=== PATIENT | female | born 1935 | race Caucasian/White ===

== ENCOUNTER 2016-06-23 11:47 | Day surgery (SDC) | payer OTHER ==
[~2016-06-23 11:47] MED LIST: ALAV10TA PO; ALPR.25 PO; ASPI325T24 PO; B-1100TA2 PO; BIOT5000 PO; CENTTAB16 PO; CIPR500T4 PO; CO Q100C9 PO; CRANCAP11 PO; CYAN100017 PO; CYMB30CA PO; D32000CA PO; GABA100C4 PO; GNP3TAB PO; HYAL20CA2 PO; LEVO75TA3 PO; LOSA50TA PO; MAGN400 PO; NITR.4 SL; OMEP20TA PO; POTA550T4 PO; PROB1TAB PO; ULTR50TA PO; VITA100017 PO; VITA100T55 PO; [UNRECOGNIZED DRUG - CODE] PO
[2016-06-23] MEDS ORDERED: VANCOMYCIN 1000 MG/NS 250 ML IV SCH ×2 (12:15)
[2016-06-23] MEDS ORDERED: NS 1000 ML IV SCH (12:15)
[2016-06-23] MEDS ORDERED: MIDAZOLAM HCL 5 MG/5 ML VIAL ONE (12:30)
[2016-06-23] MEDS ORDERED: LEVO75TA3 PO (12:41)
[2016-06-23] MEDS ORDERED: ASPI325T PO (12:41)
[2016-06-23] MEDS ORDERED: ATOR10TA15 PO (12:41)
[2016-06-23] MEDS ORDERED: MELAPOW2 PO (12:41)
[2016-06-23] MEDS ORDERED: ALPR0.25 PO (12:41)
[2016-06-23] MEDS ORDERED: VITA25TA PO (12:41)
[2016-06-23] MEDS ORDERED: TUMS500C CHEW (12:41)
[2016-06-23] MEDS ORDERED: GABA300C5 PO (12:41)
[2016-06-23] MEDS ORDERED: CYAN1TAB24 PO (12:41)
[2016-06-23] MEDS ORDERED: CENTTAB PO (12:41)
[2016-06-23] MEDS ORDERED: OMEP20CA2 (12:41)
[2016-06-23] MEDS ORDERED: TRAM50TA PO (12:41)
[2016-06-23] MEDS ORDERED: CRAN125T PO (12:41)
[2016-06-23] MEDS ORDERED: VITA100C6 PO (12:41)
[2016-06-23] MEDS ORDERED: LOSA50TA PO (12:41)
[2016-06-23] MEDS ORDERED: BACL10TA PO (12:41)
[2016-06-23] MEDS ORDERED: CHOL1CHW5 CHEW (12:41)
[2016-06-23] MEDS ORDERED: METO50TA11 PO (12:41)
[2016-06-23] MEDS ORDERED: COQ-30CA2 PO (12:41)
[2016-06-23] MEDS ORDERED: LORA1POW7 PO (12:41)
[2016-06-23] MEDS ORDERED: POTA2.5T PO (12:41)
[2016-06-23] MEDS ORDERED: MUPIROCIN 2% OINT 1 APPLIC/GM SYR NASAL SCH (13:00)
[2016-06-23] MEDS ORDERED: CHLORHEXIDINE GLUCONATE 2 % 1 PACK (2 CLOTHS) TOP SCH (13:00)
[2016-06-23] MEDS ORDERED: POVIDONE IODINE 5% (ANTISEPSIS KIT) 4 APPLICATIONS EACH NARE SCH (13:00)
--- NOTE | 2016-06-23 13:18 | MA ---
cc: NICOLAS JARA MD DATE: 06/23/2016. PREPROCEDURE DIAGNOSIS: Syncope. POSTPROCEDURE DIAGNOSIS: Successful loop recorder insertion. OPERATIVE PROCEDURE PERFORMED: Loop recorder insertion. DESCRIPTION OF THE PROCEDURE: The patient was brought to the DOC unit in the postabsorptive state after informed consent was obtained. A iLumen LINQ loop recorder was inserted subcutaneously to the left chest. The patient tolerated procedure well without any apparent complications. The initial R-wave was 0.31 mV. Tachybrady pause atrial fibrillation detection was enabled. The serial number was [id number]. MD MANA Townsend/MACARIO /1:09 PM /1:15 PM
== END 2016-06-23 15:25 | disposition home or self-care (01) ==
LOC: HDOC 11:47 → HDIC 11:49 → HDOC 15:25
PROVIDERS: ATTEND Nuclear Medicine Nuclear Cardiology
DX: R55 Syncope and collapse (principal); I10 Essential (primary) hypertension
CPT/HCPCS: 33282; C1764; J2250; J3010

== ENCOUNTER 2017-06-18 07:18 | Emergency (ER) | payer OTHER ==
[~2017-06-18] VITALS: Ht 152.4 cm; Wt 75.0 kg
[~2017-06-18 07:18] MED LIST changes: -ALAV10TA PO; -ALPR.25 PO; +ALPR0.25 PO; +ASPI-183 PO; -ASPI325T24 PO; +ATOR10TA15 PO; -B-1100TA2 PO; +BACL10TA PO; -BIOT5000 PO; +CENTTAB PO; -CENTTAB16 PO; +CHOL1CHW5 CHEW; -CIPR500T4 PO; -CO Q100C9 PO; +COQ-30CA2 PO; +CRAN125T PO; -CRANCAP11 PO; -CYAN100017 PO; +CYAN1TAB24 PO; -CYMB30CA PO; -D32000CA PO; -GABA100C4 PO; +GABA300C5 PO; -GNP3TAB PO; -HYAL20CA2 PO; +LORA1POW7 PO; -MAGN400 PO; +MELAPOW2 PO; +METO1TAB9 PO; -NITR.4 SL; +OMEP20CA2; -OMEP20TA PO; +POTA2.5T PO; -POTA550T4 PO; -PROB1TAB PO; +TRAM50TA PO; +TUMS500C CHEW; -ULTR50TA PO; -VITA100017 PO; +VITA100C6 PO; -VITA100T55 PO; +VITA25TA PO; -[UNRECOGNIZED DRUG - CODE] PO
[2017-06-18 07:24] VITALS: BP 195/85; PULSE 56; RESP 18; TEMP 98.9; O2SAT 98
[2017-06-18 07:42] VITALS: BP 196/87; PULSE 56; RESP 17; TEMP 98.2; O2SAT 96
--- NOTE | 2017-06-18 08:48 | PD ---
HPI Chief Complaint: Plastic Roller Problem/Complaint Time Seen by Provider: 07:43 Travel History International Travel<30 days: No Contact w/Intl Traveler<30days: No Traveled to known affect area: No History of Present Illness HPI The patient is a 81-year-old female who presents to the emergency department for multiple complaints. The patient states that she fell last Sunday, was seen by her primary physician who ordered x-rays of the right ribs as well as a CT the brain. The patient's images were performed at [facility] per the patient's report. The patient states his CT was negative and x-rays of the right ribs were negative. The patient was treated with tramadol and has been taking Tylenol and ibuprofen, however, continues to have breakthrough pain. She also complains of mild dizziness, states she has a history of dizziness, secondary to sinuses. The dizziness is currently resolved. She also complains of brown discharge in her pad this morning. Is unsure if she had any vaginal bleeding. She does have a history of a thickened endometrial stripe, was seen by gynecology last year in August and had 2 outpatient ultrasounds as well as a pelvic examination. She was told that she does not have carcinoma and there is no scraping of the endometrium performed. Patient states the discharge was this morning, was brown, she's had a pad since then without any discharge. She denies any visible bleeding. She denies any dysuria, frequency, or urgency. PFSH Past Medical History Arthritis: Yes Atrial Fibrillation: Yes Anxiety: Yes Depression: Yes Heart Rhythm Problems: No Cancer: Yes (breast; DCIS) Cardiac Catheterization: No Cardiovascular Problems: No High Cholesterol: Yes Congestive Heart Failure: No Diminished Hearing: Yes ([place] ) GERD: Yes Glaucoma: Yes Hypertension: Yes Neurologic: Yes (NUEROPATHY, SHINGLES) Myocardial Infarction: No Radiation Therapy: Yes Shingles: Yes Thyroid Disease: Yes Influenza Vaccination: No Menopausal: Yes Past Surgical History Cholecystectomy: Yes Coronary Artery Bypass Graft: No Eye Surgery: Yes (LASER SURGERY) Tonsillectomy: Yes Social History Alcohol Use: No Tobacco Use: No Substance Use: No Allergies-Medications (Allergen,Severity, Reaction): Coded Allergies: acetaminophen (Unverified Allergy, Severe, 01/30/17) carvedilol (Unverified Allergy, Severe, 01/30/17) codeine (Unverified Allergy, Severe, RespiraTORY, 01/30/17) oxycodone (Unverified Allergy, Severe, 01/30/17) penicillin G (Unverified Allergy, Severe, 01/30/17) propoxyphene (Unverified Allergy, Severe, 01/30/17) Reported Meds & Prescriptions Reported Meds & Active Scripts Active Reported D3 Super Strength (Cholecalciferol) 2,000 Unit Cap 2,000 Units PO DAILY Vitamin C (Ascorbic Acid) 250 Mg Tab 1,000 Mg PO DAILY Centrum (Multiple Vitamins W/ Minerals) 1 Chew 1 Tab CHEW DAILY Xyzal (Levocetirizine Dihydrochloride) 5 Mg Tablet 1 Tab PO HS Escitalopram (Escitalopram Oxalate) 5 Mg Tab 5 Mg PO DAILY Melatonin (Melatonin (Bulk)) 1 Pow Pow 3 Mg PO DAILY Tramadol (Tramadol HCl) 50 Mg Tab Unknown Dose PO DIRECTED PRN Tums (Calcium Carbonate (Antacid)) 500 Mg Chew 300 Mg CHEW DIRECTED PRN Omeprazole 20 Mg Cap Metoprolol Succinate ER 24 HR (Metoprolol Succinate) 50 Mg Tab 50 Mg PO DAILY Losartan (Losartan Potassium) 50 Mg Tab 50 Mg PO DAILY Levothyroxine (Levothyroxine Sodium) 75 Mcg Tab 75 Mcg PO DAILY Gabapentin 300 Mg Cap 100 Mg PO BID Coq-10 (Coenzyme Q10 (Ubidecarenone)) 30 Mg Cap Unknown Dose PO DAILY Baclofen 10 Mg Tab 10 Mg PO DAILY PRN B12 (Cyanocobalamin) 1,000 Mcg Tab Unknown Dose PO DAILY Atorvastatin (Atorvastatin Calcium) 10 Mg Tab 10 Mg PO DAILY Aspirin 325 Mg Tab 325 Mg PO HS Alprazolam 0.25 Mg Tab 0.25 Mg PO DIRECTED PRN Review of Systems Except as stated in HPI: all other systems reviewed are Neg General / Constitutional: No: Fever HENT: No: Lightheadedness Cardiovascular: Positive: Other (right sided rib pain after falling last Sunday), No: Chest Pain or Discomfort Respiratory: No: Shortness of Breath Gastrointestinal: No: Nausea, Vomiting Genitourinary: Positive: Discharge, Other, No: Dysuria Neurologic: Positive: Dizziness Physical Exam Narrative GENERAL: Awake, alert, pleasant 81-year-old female who appears her stated age and is in no acute respiratory distress. SKIN: Focused skin assessment warm/dry. HEAD: Old appearing contusion on the right frontal forehead.. EYES: Pupils equal and round. No scleral icterus. No injection or drainage. ENT: No nasal bleeding or discharge. Mucous membranes pink and moist. NECK: Trachea midline. No JVD. CARDIOVASCULAR: Regular rate and rhythm. No murmur appreciated. Tenderness over the right paravertebral muscles, right rhomboids, lateral right chest wall. RESPIRATORY: No accessory muscle use. Clear to auscultation. Breath sounds equal bilaterally. GASTROINTESTINAL: Abdomen soft, non-tender, nondistended. Back: Mild tenderness of the right paravertebral muscles and right lateral thoracic wall. No tenderness over the thoracic or lumbar vertebrae. Pelvic: Exam was performed in the presence of a female nurse. A little brown discoloration on the lateral aspect of the inferior introitus bilaterally. Speculum examination reveals a cervix which is closed, no visible blood, scant white discharge in vaginal vault. MUSCULOSKELETAL: No obvious deformities. No clubbing. No cyanosis. No edema. NEUROLOGICAL: Awake and alert. No obvious cranial nerve deficits. Motor grossly within normal limits. Normal speech. PSYCHIATRIC: Appropriate mood and affect; insight and judgment normal. Data Data Last Documented VS Vital Signs Date Time Temp Pulse Resp B/P (MAP) Pulse Ox O2 Delivery O2 Flow Rate FiO2 06/18/17 07:42 98.2 56 17 196/87 (123) 96 Room Air Orders Orders Wet Prep Profile (06/18/17 08:39) Urinalysis - C+S If Indicated (06/18/17 08:39) Urine Culture (06/18/17 08:50) Labs Laboratory Tests Test 06/18/17 08:50 Urine Color YELLOW Urine Turbidity CLEAR Urine pH 7.5 Urine Specific [place] 1.015 Urine Protein TRACE mg/dL Urine Glucose (UA) NEG mg/dL Urine Ketones NEG mg/dL Urine Occult Blood SMALL Urine Nitrite NEG Urine Bilirubin NEG Urine Urobilinogen LESS THAN 2.0 MG/DL Urine Leukocyte Esterase LARGE Urine RBC 9 /hpf Urine WBC 10 /hpf Urine Squamous Epithelial Cells 1 /hpf Urine Bacteria OCC /hpf Urine Mucus FEW /lpf Microscopic Urinalysis Comment CULTURE INDICATED Clue Cells (Wet Prep) NONE SEEN Vaginal Trichomonas (Wet Prep) NONE SEEN Vaginal Yeast (Wet Prep) NONE SEEN MDM Medical Decision Making Medical Screen Exam Complete: Yes Emergency Medical Condition: Yes Medical Record Reviewed: Yes Interpretation(s) Laboratory Tests Test 06/18/17 08:50 Urine Color YELLOW Urine Turbidity CLEAR Urine pH 7.5 Urine Specific [place] 1.015 Urine Protein TRACE mg/dL Urine Glucose (UA) NEG mg/dL Urine Ketones NEG mg/dL Urine Occult Blood SMALL Urine Nitrite NEG Urine Bilirubin NEG Urine Urobilinogen LESS THAN 2.0 MG/DL Urine Leukocyte Esterase LARGE Urine RBC 9 /hpf Urine WBC 10 /hpf Urine Squamous Epithelial Cells 1 /hpf Urine Bacteria OCC /hpf Urine Mucus FEW /lpf Microscopic Urinalysis Comment CULTURE INDICATED Clue Cells (Wet Prep) NONE SEEN Vaginal Trichomonas (Wet Prep) NONE SEEN Vaginal Yeast (Wet Prep) NONE SEEN Differential Diagnosis Differential diagnosis includes vaginitis, bacterial vaginosis, yeast, UTI, endometrial cancer, rib fracture, rib contusion, closed head injury, intracranial hemorrhage. Narrative Course I went to the radiology department was able to have the radiology techs print a report of the patient's CT the brain from 06/13/2017 which revealed no acute abnormality. There were also able to print x-ray report of the ribs with PA chest on the right which revealed no evidence of any definite right sided rib fractures. A pelvic exam was performed, wet prep and UA were sent to lab. Wet prep is negative. UA reveals RBCs and WBCs with bacteria. I do discussion with the patient, she states only Macrobid will work for her infections. She is advised to follow-up on an outpatient basis for repeat ultrasound of the pelvis through her strategic marketing specialist to follow-up her previous exam from last August. The patient agrees and understands. Diagnosis Primary Impression: UTI (urinary tract infection) Qualified Codes: N30.01 - Acute cystitis with hematuria Patient Instructions: General Instructions Additional Instructions: Medication as directed. Please provide the patient copy of her labs at discharge. Follow-up with her strategic marketing specialist for outpatient ultrasound. Return if symptoms worsen or progress. Med/Other Pt SpecificInfo: Prescription(s) given Scripts Nitrofurantoin Monohydrate Macrocrystals (Macrobid) 100 Mg Cap 100 MG PO BID for Infection for 10 Days, #20 CAP 0 Refills Prov: Hima Smith MD 06/18/17 Disposition: 01 DISCHARGE HOME Condition: Stable Hima Smith MD Jun 18, 2017 08:48
[2017-06-18] MEDS ORDERED: ESCI5TAB PO (09:03)
[2017-06-18] MEDS ORDERED: LEVO5TAB8 PO (09:03)
[2017-06-18] MEDS ORDERED: VITA250T3 PO (09:06)
[2017-06-18] MEDS ORDERED: CENTCHW4 CHEW (09:06)
[2017-06-18] MEDS ORDERED: D200CAP PO (09:06)
[2017-06-18 09:09] LABS: BACTERIA, URINE OCC /hpf; BILIRUBIN, URINE NEG (NEG); BLOOD, URINE SMALL (NEG); GLUCOSE,URINE NEG (NEG); KETONE, URINE NEG (NEG); MUCUS URINE FEW /lpf (OCC); NITRITE,URINE NEG (NEG); PH, URINE 7.5 (5.0-8.5); SQUAMOUS EPITHELIAL CELL URINE 1 /hpf (0-5); URINE COLOR YELLOW (YELLW/STRAW); URINE LEUKOCYTE ESTERASE LARGE (NEG)
[2017-06-18] MEDS ORDERED: MACR100C2 PO (09:26)
== END 2017-06-18 09:52 | disposition home or self-care (01) ==
LOC: NEPC 07:18
DX: N30.01 Acute cystitis with hematuria (principal); R42 Dizziness and giddiness; I48.91 Unspecified atrial fibrillation; I10 Essential (primary) hypertension; E78.00 Pure hypercholesterolemia, unspecified; H40.9 Unspecified glaucoma; Z85.3 Personal history of malignant neoplasm of breast; Z88.5 Allergy status to narcotic agent; Z88.0 Allergy status to penicillin
CPT/HCPCS: 81001; 87086; 87210; 99283

== ENCOUNTER 2017-10-02 18:10 | Emergency (ER) | payer OTHER ==
[~2017-10-02] VITALS: Ht 149.9 cm; Wt 75.3 kg
[~2017-10-02 18:10] MED LIST changes: +CENTCHW4 CHEW; -CENTTAB PO; -CHOL1CHW5 CHEW; -CRAN125T PO; +D200CAP PO; +ESCI5TAB PO; +LEVO5TAB8 PO; -LORA1POW7 PO; +MACR100C2 PO; -POTA2.5T PO; -VITA100C6 PO; +VITA250T3 PO; -VITA25TA PO
[2017-10-02 18:19] VITALS: BP 116/63; PULSE 72; RESP 16; TEMP 98.1; O2SAT 95
--- NOTE | 2017-10-02 19:00 | RADRPT ---
EXAM DATE/TIME: 10/02/2017 18:44 [facility] COMPARISON: No previous studies available for comparison. INDICATIONS : Right groin pain post fall 5 days ago. MEDICAL HISTORY : Hypercholesterolemia. Arthritis. Gastroesophageal reflux disease. Hypertension. A-fib. Thyroid di sease. SURGICAL HISTORY : Tonsillectomy. Cholecystectomy. Right hip replacement. ENCOUNTER: Initial ACUITY: 4 - 6 days PAIN SCORE: 6/10 LOCATION: Right groin FINDINGS: A single frontal view of the pelvis demonstrates no evidence of fracture. Right hip prosthesis. No lopez rdware loosening.. The soft tissues are intact. Left hip intact. CONCLUSION: Right hip arthroplasty. Mingo Asencio MD on October 02, 2017 at 18:57 Board Certified Radiologist. This report was verified electronically.
--- NOTE | 2017-10-02 19:05 | PD ---
HPI Chief Complaint: Fall Time Seen by Provider: 18:33 Travel History International Travel<30 days: No Contact w/Intl Traveler<30days: No Traveled to known affect area: No History of Present Illness HPI The patient was seen and examined in the presence of the nurse. 4 days ago this patient tripped on a step and fell. The fall caused her to have pain in her right groin. She is ambulatory for the last 4 days after the fall. She uses a wheeled walker. Her physician advised her to come and get an x-ray. She has history of right hip replacement. Symptom severity is moderate. Worse with weightbearing PFSH Past Medical History Hx Anticoagulant Therapy: Yes (asa 325mg) Arthritis: Yes Atrial Fibrillation: Yes Anxiety: Yes Depression: Yes Heart Rhythm Problems: No Cancer: Yes (breast; DCIS) Cardiac Catheterization: No Cardiovascular Problems: Yes (htn on meds) High Cholesterol: Yes Congestive Heart Failure: No Diminished Hearing: Yes ([place] ) GERD: Yes Glaucoma: Yes Hypertension: Yes Neurologic: Yes (NUEROPATHY, SHINGLES) Myocardial Infarction: No Radiation Therapy: Yes Shingles: Yes Thyroid Disease: Yes Tetanus Vaccination: > 5 Years Influenza Vaccination: Yes ?: Not Menopausal: Yes Past Surgical History Cholecystectomy: Yes Coronary Artery Bypass Graft: No Eye Surgery: Yes (LASER SURGERY) Tonsillectomy: Yes Social History Alcohol Use: No Tobacco Use: No Substance Use: No Allergies-Medications (Allergen,Severity, Reaction): Coded Allergies: acetaminophen (Unverified Allergy, Severe, 10/02/17) carvedilol (Unverified Allergy, Severe, 10/02/17) codeine (Unverified Allergy, Severe, RespiraTORY, 10/02/17) oxycodone (Unverified Allergy, Severe, 10/02/17) penicillin G (Unverified Allergy, Severe, 10/02/17) propoxyphene (Unverified Allergy, Severe, 10/02/17) Reported Meds & Prescriptions Reported Meds & Active Scripts Active Reported D3 Super Strength (Cholecalciferol) 2,000 Unit Cap 2,000 Units PO DAILY Vitamin C (Ascorbic Acid) 250 Mg Tab 1,000 Mg PO DAILY Centrum (Multiple Vitamins W/ Minerals) 1 Chew 1 Tab CHEW DAILY Xyzal (Levocetirizine Dihydrochloride) 5 Mg Tablet 1 Tab PO HS Escitalopram (Escitalopram Oxalate) 5 Mg Tab 5 Mg PO DAILY Melatonin (Melatonin (Bulk)) 1 Pow Pow 3 Mg PO DAILY Tramadol (Tramadol HCl) 50 Mg Tab Unknown Dose PO DIRECTED PRN Tums (Calcium Carbonate (Antacid)) 500 Mg Chew 300 Mg CHEW DIRECTED PRN Omeprazole 20 Mg Cap Metoprolol Succinate ER 24 HR (Metoprolol Succinate) 50 Mg Tab 50 Mg PO DAILY Losartan (Losartan Potassium) 50 Mg Tab 50 Mg PO DAILY Levothyroxine (Levothyroxine Sodium) 75 Mcg Tab 75 Mcg PO DAILY Gabapentin 300 Mg Cap 100 Mg PO BID Baclofen 10 Mg Tab 10 Mg PO DAILY PRN B12 (Cyanocobalamin) 1,000 Mcg Tab Unknown Dose PO DAILY Atorvastatin (Atorvastatin Calcium) 10 Mg Tab 10 Mg PO DAILY Aspirin 325 Mg Tab 325 Mg PO HS Review of Systems General / Constitutional: No: Fever Eyes: No: Visual changes HENT: No: Headaches Cardiovascular: No: Chest Pain or Discomfort Respiratory: No: Shortness of Breath Gastrointestinal: No: Abdominal Pain Genitourinary: No: Dysuria Musculoskeletal: Positive: Pain Skin: No Rash Neurologic: No: Weakness Psychiatric: No: Depression Endocrine: No: Polydipsia Hematologic/Lymphatic: No: Easy Bruising Physical Exam Narrative GENERAL: Well-nourished, well-developed patient in no apparent distress. SKIN: Focused skin assessment reveals no rash and nodules. Skin is Warm and dry. HEAD: Atraumatic. Normocephalic. EYES: Pupils equal and round. No scleral icterus. No injection or drainage. ENT: No nasal bleeding or discharge. Mucous membranes pink and moist. NECK: Trachea midline. No JVD. CARDIOVASCULAR: Regular rate and rhythm. No murmur appreciated. RESPIRATORY: No accessory muscle use. Clear to auscultation. Breath sounds equal bilaterally. GASTROINTESTINAL: Abdomen soft, non-tender, nondistended. Hepatic and splenic margins not palpable. MUSCULOSKELETAL: No obvious deformities. No clubbing. No cyanosis. No edema. There is some minor discomfort with palpating her right inguinal ligament. There is no erythema or bruising or instability NEUROLOGICAL: Awake and alert. No obvious cranial nerve deficits. Motor grossly within normal limits. Normal speech. PSYCHIATRIC: Appropriate mood and affect; insight and judgment normal. Data Data Last Documented VS Vital Signs Date Time Temp Pulse Resp B/P (MAP) Pulse Ox O2 Delivery O2 Flow Rate FiO2 4/17/18 18:33 Room Air 10/02/17 18:19 98.1 72 16 116/63 (80) 95 Orders Orders Pelvis, Ap Only (Routine) (10/02/17 ) MDM Medical Decision Making Medical Screen Exam Complete: Yes Emergency Medical Condition: Yes Medical Record Reviewed: Yes Differential Diagnosis Pelvic fracture, groin strain, contusion Narrative Course I have reviewed the patient's electronic medical record. I reviewed her pelvis x-ray which shows no fracture. Right hip arthroplasty is located well Supportive care discussed. I will offer her something for discomfort. Diagnosis Primary Impression: Strain of muscle of right groin region Departure Forms: Tests/Procedures Additional Instructions: The patient was advised to follow up with their physician and return if they worsen. Med/Other Pt SpecificInfo: Other Disposition: 01 DISCHARGE HOME Condition: Stable Dat Patel MD Oct 02, 2017 19:05
== END 2017-10-02 19:26 | disposition home or self-care (01) ==
LOC: PHED 18:10
DX: S39.011A Strain of muscle, fascia and tendon of abdomen, initial encounter (principal); W10.9XXA Fall (on) (from) unspecified stairs and steps, initial encounter; I48.91 Unspecified atrial fibrillation; F32.9 Major depressive disorder, single episode, unspecified; E78.00 Pure hypercholesterolemia, unspecified; I10 Essential (primary) hypertension; E07.9 Disorder of thyroid, unspecified; Z96.641 Presence of right artificial hip joint; Z79.82 Long term (current) use of aspirin; Z85.3 Personal history of malignant neoplasm of breast
CPT/HCPCS: 72170; 99283

== ENCOUNTER 2017-10-21 10:57 | Emergency (ER) | payer OTHER ==
[~2017-10-21] VITALS: Ht 149.9 cm; Wt 75.0 kg
[~2017-10-21 10:57] MED LIST changes: -ALPR0.25 PO; -COQ-30CA2 PO; -MACR100C2 PO
[2017-10-21 11:06] VITALS: BP 170/74; PULSE 79; RESP 18; TEMP 98.9; O2SAT 99
[2017-10-21 11:17] VITALS: PULSE 72; RESP 16; O2SAT 99
[2017-10-21] MEDS ORDERED: CYMB30CA PO (11:27)
[2017-10-21] MEDS ORDERED: AMLO5 PO (11:27)
[2017-10-21] MEDS ORDERED: CYMB60CA PO (11:27)
[2017-10-21 11:50] VITALS: BP 119/95
--- NOTE | 2017-10-21 13:24 | RADRPT ---
EXAM DATE/TIME: 10/21/2017 12:41 [facility] COMPARISON: No previous studies available for comparison. INDICATIONS : Lower back pain radiating into gluteal area. ORAL CONTRAST: No oral contrast ingested. RADIATION DOSE: 15.35 CTDIvol (mGy) MEDICAL HISTORY : Cardiovascular disease. Hypertension. Gastroesophageal reflux disease.AFIB SURGICAL HISTORY : Cholecystectomy. Right hip replacement. ENCOUNTER: Initial ACUITY: 4 - 6 days PAIN SCALE: 8/10 LOCATION: Bilateral Lower back TECHNIQUE: Volumetric scanning of the pelvis was performed. Using automated exposure control and adjustment of the mA and/or kV according to patient size, radiation dose was kept as low as reasonably achievable t o obtain optimal diagnostic quality images. DICOM format image data is available electronically for review and comparison. FINDINGS: BOWEL/MESENTERY: The visualized small and large bowel demonstrate no acute abnormality. There is no free fluid. There is mild sigmoid diverticulosis. BLADDER: There is no wall thickening or mass. RETROPERITONEUM: There is no aneurysm or lymphadenopathy. There is moderate atherosclerotic disease. REPRODUCTIVE: Uterus and adnexa demonstrate no abnormality. INGUINAL: There is a small fat-containing right inguinal hernia. No lymphadenopathy is present. MUSCULOSKELETAL: There has been prior right hip bipolar arthroplasty. The hardware results in beam hardening artifact. There are minimally displaced fractures of the right inferior pubic ramus and right superior pubic r amus at the junction with the pubic bone. Adjacent mineralization is present suggesting that these fr actures are subacute. Facet arthrosis is present at L4-L5 and L5-S1. CONCLUSION: 1. There are subacute fractures of the right superior and inferior pubic rami. The mineralization the adjacent soft tissues suggest that these are not acute. 2. Otherwise, no acute finding is identified. Everett Garcia MD on October 21, 2017 at 13:16 Board Certified Radiologist. This report was verified electronically.
--- NOTE | 2017-10-21 13:28 | RADRPT ---
EXAM DATE/TIME: 10/21/2017 12:41 [facility] COMPARISON: No previous studies available for comparison. INDICATIONS : Lower back pain radiating into gluteal area. RADIATION DOSE: 31.60 CTDIvol (mGy) MEDICAL HISTORY : Cardiovascular disease. Hypertension. Gastroesophageal reflux disease.AFIB SURGICAL HISTORY : Cholecystectomy. ENCOUNTER: Initial ACUITY: 1 day PAIN SCALE: 8/10 LOCATION: Bilateral Lower back TECHNIQUE: Volumetric scanning of the lumbar spine was performed. Multiplanar reconstructions in the sagittal, coronal and oblique axial planes were performed. Using automated exposure control and adjustment of the mA and/or kV according to patient size, radiation dose was kept as low as reasonably achievable t o obtain optimal diagnostic quality images. DICOM format image data is available electronically for review and comparison. FINDINGS: VERTEBRAE: There is height loss of the superior endplate of L2. No fracture line is identified. There is approxi mately 40% height loss centrally. Remaining vertebral bodies demonstrate maintained heights. ALIGNMENT: No anterolisthesis or retrolisthesis is present. T12-L1: No disc herniation, canal stenosis, or neural foraminal stenosis. L1-L2: There is slight posterior convexity of the posterior superior margin of L2 secondary to the compressi on fracture. This slightly effaces the left lateral recess. No disc herniation, canal stenosis, or ne ural foraminal stenosis is identified. L2-L3: There is a mild diffuse disc bulge with mild facet hypertrophy. No spinal canal stenosis or neural fo raminal stenosis is present. L3-L4: There is a moderate-sized diffuse disc bulge with moderate facet and ligamentum flavum hypertrophy. T hese changes mildly narrow the spinal canal. There is no significant neural foraminal stenosis. L4-L5: There is a mild diffuse disc bulge with moderate facet hypertrophy. No spinal canal stenosis or signi ficant neural foraminal narrowing is present. L5-S1: There is mild to moderate facet hypertrophy. A mild diffuse disc bulge is present. No canal stenosis or neural foraminal stenosis is present. Visualized paraspinous structures demonstrate no acute finding. A small hiatal hernia is present and there is severe atherosclerotic disease of the abdominal aorta. CONCLUSION: 1. There is a superior endplate compression fracture of L2 of uncertain chronicity. However, no acute fracture line is visualized favoring a chronic compression fracture. 2. There is mild spinal canal stenosis at L3-L4 secondary to diffuse disc bulge and facet arthrosis. Everett Garcia MD on October 21, 2017 at 13:21 Board Certified Radiologist. This report was verified electronically.
--- NOTE | 2017-10-21 13:50 | PD ---
HPI Chief Complaint: Pain: Acute or Chronic Time Seen by Provider: 11:18 Travel History International Travel<30 days: No Contact w/Intl Traveler<30days: No Traveled to known affect area: No History of Present Illness HPI Patient is a 81-year-old female who presents the emergency room with complaints of right-sided groin pain with low back pain. Patient reports that she slipped and fell on October 03 as she missed a step coming out of a mobile home. Patient reports that she landed directly onto concrete. Patient reports that since then , she has been having pelvic pain. Patient was seen at [facility] did have an x-ray of her pelvis which as negative for fracture. Patient reports that she has been ambulating with a walker with difficultly. Denies any recent fall/trauma's. PFSH Past Medical History Hx Anticoagulant Therapy: Yes (asa 325mg) Arthritis: Yes Atrial Fibrillation: Yes Anxiety: Yes Depression: Yes Heart Rhythm Problems: No Cancer: Yes (breast; DCIS) Cardiac Catheterization: No Cardiovascular Problems: Yes (htn on meds) High Cholesterol: Yes Congestive Heart Failure: No Diminished Hearing: Yes ([place] ) GERD: Yes Glaucoma: Yes Hypertension: Yes Neurologic: Yes (NUEROPATHY, SHINGLES) Myocardial Infarction: No Radiation Therapy: Yes Shingles: Yes Thyroid Disease: Yes Tetanus Vaccination: < 5 Years Menopausal: Yes Past Surgical History Cholecystectomy: Yes Coronary Artery Bypass Graft: No Eye Surgery: Yes (LASER SURGERY) Tonsillectomy: Yes Social History Alcohol Use: No Tobacco Use: No Substance Use: No Allergies-Medications (Allergen,Severity, Reaction): Coded Allergies: acetaminophen (Unverified Allergy, Severe, 10/02/17) carvedilol (Unverified Allergy, Severe, 10/02/17) codeine (Unverified Allergy, Severe, RespiraTORY, 10/02/17) oxycodone (Unverified Allergy, Severe, 10/02/17) penicillin G (Unverified Allergy, Severe, 10/02/17) propoxyphene (Unverified Allergy, Severe, 10/02/17) Reported Meds & Prescriptions Reported Meds & Active Scripts Active Reported Cymbalta DR (Duloxetine HCl) 30 Mg Capdr 30 Mg PO DAILY Norvasc (Amlodipine Besylate) 5 Mg Tab 5 Mg PO DAILY D3 Super Strength (Cholecalciferol) 2,000 Unit Cap 2,000 Units PO DAILY Vitamin C (Ascorbic Acid) 250 Mg Tab 1,000 Mg PO DAILY Centrum (Multiple Vitamins W/ Minerals) 1 Chew 1 Tab CHEW DAILY Xyzal (Levocetirizine Dihydrochloride) 5 Mg Tablet 1 Tab PO HS Escitalopram (Escitalopram Oxalate) 5 Mg Tab 5 Mg PO DAILY Melatonin (Melatonin (Bulk)) 1 Pow Pow 3 Mg PO DAILY Tramadol (Tramadol HCl) 50 Mg Tab Unknown Dose PO DIRECTED PRN Tums (Calcium Carbonate (Antacid)) 500 Mg Chew 300 Mg CHEW DIRECTED PRN Omeprazole 20 Mg Cap Metoprolol Succinate ER 24 HR (Metoprolol Succinate) 50 Mg Tab 50 Mg PO DAILY Levothyroxine (Levothyroxine Sodium) 75 Mcg Tab 75 Mcg PO DAILY Gabapentin 300 Mg Cap 100 Mg PO BID B12 (Cyanocobalamin) 1,000 Mcg Tab Unknown Dose PO DAILY Atorvastatin (Atorvastatin Calcium) 10 Mg Tab 10 Mg PO DAILY Aspirin 325 Mg Tab 325 Mg PO HS Review of Systems General / Constitutional: No: Fever Eyes: No: Visual changes HENT: No: Headaches Cardiovascular: No: Chest Pain or Discomfort Respiratory: No: Shortness of Breath Gastrointestinal: Positive: Other ("pelvic pain"), No: Abdominal Pain Genitourinary: No: Dysuria Musculoskeletal: Positive: Pain (low back) Skin: No Rash Neurologic: No: Weakness Psychiatric: No: Depression Endocrine: No: Polydipsia Hematologic/Lymphatic: No: Easy Bruising Physical Exam Narrative GENERAL: Mild distress SKIN: Focused skin assessment warm/dry. HEAD: Atraumatic. Normocephalic. EYES: Pupils equal and round. No scleral icterus. No injection or drainage. ENT: No nasal bleeding or discharge. Mucous membranes pink and moist. NECK: Trachea midline. No JVD. CARDIOVASCULAR: Regular rate and rhythm. No murmur appreciated. RESPIRATORY: No accessory muscle use. Clear to auscultation. Breath sounds equal bilaterally. GASTROINTESTINAL: Abdomen soft, non-tender, nondistended. Hepatic and splenic margins not palpable. MUSCULOSKELETAL: No obvious deformities. No clubbing. No cyanosis. No edema. Patient ambulating in the ER with normal gait NEUROLOGICAL: Awake and alert. No obvious cranial nerve deficits. Motor grossly within normal limits. Normal speech. PSYCHIATRIC: Appropriate mood and affect; insight and judgment normal. Data Data Last Documented VS Vital Signs Date Time Temp Pulse Resp B/P (MAP) Pulse Ox O2 Delivery O2 Flow Rate FiO2 10/21/17 11:50 119 18 119/95 (103) 97 10/21/17 11:17 Room Air 10/21/17 11:[address] Lumb Spine W/O Contrast (10/21/17 ) Ct Pelvis W/O Iv Contrast (10/21/17 ) MDM Medical Decision Making Medical Screen Exam Complete: Yes Emergency Medical Condition: Yes Medical Record Reviewed: Yes Interpretation(s) Vital Signs Date Time Temp Pulse Resp B/P (MAP) Pulse Ox O2 Delivery O2 Flow Rate FiO2 10/21/17 11:50 119 18 119/95 (103) 97 10/21/17 11:17 72 16 99 Room Air 10/21/17 11:06 98.9 79 18 170/74 (106) [address] 10/21/17 0000 Signed Impressions: Service Date/Time: Saturday, October 21, 2017 12:41 - CONCLUSION: 1. There are subacute fractures of the right superior and inferior pubic rami. The mineralization the adjacent soft tissues suggest that these are not acute. 2. Otherwise, no acute finding is identified. Everett Garcia MD Lumbar Spine CT 10/21/17 0000 Signed Impressions: Service Date/Time: Saturday, October 21, 2017 12:41 - CONCLUSION: 1. There is a superior endplate compression fracture of L2 of uncertain chronicity. However, no acute fracture line is visualized favoring a chronic compression fracture. 2. There is mild spinal canal stenosis at L3-L4 secondary to diffuse disc bulge and facet arthrosis. Everett Garcia MD Differential Diagnosis pubic ramus fx, lumbar compression fx Narrative Course During the course of the patients emergency department visit, the patients history, examination, and differential diagnosis were reviewed with the patient. Radiology studies were reviewed and remarkable for: Last Impressions Pelvis CT 10/21/17 0000 Signed Impressions: Service Date/Time: Saturday, October 21, 2017 12:41 - CONCLUSION: 1. There are subacute fractures of the right superior and inferior pubic rami. The mineralization the adjacent soft tissues suggest that these are not acute. 2. Otherwise, no acute finding is identified. Everett Garcia MD Lumbar Spine CT 10/21/17 0000 Signed Impressions: Service Date/Time: Saturday, October 21, 2017 12:41 - CONCLUSION: 1. There is a superior endplate compression fracture of L2 of uncertain chronicity. However, no acute fracture line is visualized favoring a chronic compression fracture. 2. There is mild spinal canal stenosis at L3-L4 secondary to diffuse disc bulge and facet arthrosis. Everett Garcia MD Patient wtih subacute fx to right superior and inferior pubic ramus fx - case reviewed with Dr. Martinez - case reviewed with Dr. Michelle Sethi's Pa- patient can follow up in the office. Diagnosis Primary Impression: Pubic ramus fracture Qualified Codes: S32.591A - Other specified fracture of right pubis, initial encounter for closed fracture Referrals: David Deng MD Patient Instructions: General Instructions Additional Instructions: Please provide patient with a copy of her study at discharge Please follow up with your primary care doctor in 2-3 days Return to the ER if symptoms worsen or progress Return to the ER as needed Disposition: 01 DISCHARGE HOME Condition: Stable Geno Fountain DO October 21, 2017 13:50
== END 2017-10-21 14:10 | disposition home or self-care (01) ==
LOC: NEPC 10:57
DX: S32.591A Other specified fracture of right pubis, initial encounter for closed fracture (principal); I10 Essential (primary) hypertension; E78.00 Pure hypercholesterolemia, unspecified; F32.9 Major depressive disorder, single episode, unspecified; W10.9XXA Fall (on) (from) unspecified stairs and steps, initial encounter; Y92.029 Unspecified place in mobile home as the place of occurrence of the external cause
CPT/HCPCS: 72131; 72192; 99283

== ENCOUNTER 2017-11-25 17:09 | Emergency (ER) | payer OTHER ==
[~2017-11-25] VITALS: Ht 152.4 cm; Wt 75.0 kg
[~2017-11-25 17:09] MED LIST changes: +AMLO5 PO; -BACL10TA PO; +CYMB30CA PO; -LOSA50TA PO
[2017-11-25 17:20] VITALS: BP 168/67; PULSE 86; RESP 18; TEMP 98.1
[2017-11-25] MEDS ORDERED: SODIUM CHLOR 0.9% 1000 ML INJ 1,000 ML IV ONE (17:35)
--- NOTE | 2017-11-25 17:41 | PD ---
HPI Chief Complaint: Syncope/Near-Syncope Time Seen by Provider: 17:23 Travel History International Travel<30 days: No Contact w/Intl Traveler<30days: No Traveled to known affect area: No History of Present Illness HPI The patient was seen and examined in the presence of the nurse. This patient complains of having a syncopal episode. Patient was at a banquet and did have an alcoholic drink. 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 She went outside into the heat and was awaiting her daughter to pick her up and she became lightheaded and developed generalized weakness. Her daughter came up to her and says that her eyes rolled back in her head and she lost consciousness. No fall or injury. No seizure activity. Duration of the spell was 1 minute. Paramedics were summoned and brought her here. She now feels back to her normal. No vertigo or headache or chest pain or palpitations. She does have history of cardiac arrhythmia which was described to her daughter only has tachycardia. It is not A. fib. She does wear a loop recorder at present. No alleviating factors. No exacerbating factors. Symptoms were moderately severe. PFSH Past Medical History Hx Anticoagulant Therapy: Yes (asa 325mg) Arthritis: Yes Atrial Fibrillation: Yes Anxiety: Yes Depression: Yes Heart Rhythm Problems: No Cancer: Yes (breast; DCIS) Cardiac Catheterization: No Cardiovascular Problems: Yes (htn on meds) High Cholesterol: Yes Congestive Heart Failure: No Diminished Hearing: Yes ([place] ) GERD: Yes Glaucoma: Yes Hypertension: Yes Neurologic: Yes (NUEROPATHY, SHINGLES) Myocardial Infarction: No Radiation Therapy: Yes Shingles: Yes Thyroid Disease: Yes Menopausal: Yes Past Surgical History Cholecystectomy: Yes Coronary Artery Bypass Graft: No Eye Surgery: Yes (LASER SURGERY) Tonsillectomy: Yes Social History Alcohol Use: No Tobacco Use: No Substance Use: No Allergies-Medications (Allergen,Severity, Reaction): Coded Allergies: acetaminophen (Unverified Allergy, Severe, 11/25/17) carvedilol (Unverified Allergy, Severe, 11/25/17) codeine (Unverified Allergy, Severe, RespiraTORY, 11/25/17) oxycodone (Unverified Allergy, Severe, 11/25/17) penicillin G (Unverified Allergy, Severe, 11/25/17) propoxyphene (Unverified Allergy, Severe, 11/25/17) Reported Meds & Prescriptions Reported Meds & Active Scripts Active Reported Meloxicam 15 Mg Tab 15 Mg PO DAILY Norvasc (Amlodipine Besylate) 5 Mg Tab 5 Mg PO DAILY D3 Super Strength (Cholecalciferol) 2,000 Unit Cap 2,000 Units PO DAILY Vitamin C (Ascorbic Acid) 250 Mg Tab 1,000 Mg PO DAILY Centrum (Multiple Vitamins W/ Minerals) 1 Chew 1 Tab CHEW DAILY Xyzal (Levocetirizine Dihydrochloride) 5 Mg Tablet 1 Tab PO HS Escitalopram (Escitalopram Oxalate) 5 Mg Tab 10 Mg PO DAILY Melatonin (Melatonin (Bulk)) 1 Pow Pow 3 Mg PO DAILY Tramadol (Tramadol HCl) 50 Mg Tab Unknown Dose PO DIRECTED PRN Tums (Calcium Carbonate (Antacid)) 500 Mg Chew 300 Mg CHEW DIRECTED PRN Omeprazole 20 Mg Cap Metoprolol Succinate ER 24 HR (Metoprolol Succinate) 50 Mg Tab 50 Mg PO DAILY Levothyroxine (Levothyroxine Sodium) 75 Mcg Tab 50 Mcg PO DAILY Gabapentin 300 Mg Cap 200 Mg PO TID B12 (Cyanocobalamin) 1,000 Mcg Tab Unknown Dose PO DAILY Atorvastatin (Atorvastatin Calcium) 10 Mg Tab 10 Mg PO DAILY Aspirin 325 Mg Tab 325 Mg PO HS Review of Systems General / Constitutional: No: Fever Eyes: No: Visual changes HENT: Positive: Lightheadedness, No: Headaches Cardiovascular: Positive: Syncope, No: Chest Pain or Discomfort Respiratory: No: Shortness of Breath Gastrointestinal: No: Abdominal Pain Genitourinary: No: Dysuria Musculoskeletal: Positive: Weakness, No: Pain Skin: No Rash Neurologic: Positive: Weakness, Syncope Psychiatric: No: Depression Endocrine: No: Polydipsia Hematologic/Lymphatic: No: Easy Bruising Physical Exam Narrative GENERAL: Well-nourished, well-developed patient in no apparent distress. SKIN: Focused skin assessment reveals no rash and nodules. Skin is Warm and dry. HEAD: Atraumatic. Normocephalic. EYES: Pupils equal and round. No scleral icterus. No injection or drainage. ENT: No nasal bleeding or discharge. Mucous membranes pink and moist. NECK: Trachea midline. No JVD. CARDIOVASCULAR: Regular rate and rhythm. No murmur appreciated. RESPIRATORY: No accessory muscle use. Clear to auscultation. Breath sounds equal bilaterally. GASTROINTESTINAL: Abdomen soft, non-tender, nondistended. Hepatic and splenic margins not palpable. MUSCULOSKELETAL: No obvious deformities. No clubbing. No cyanosis. No edema. NEUROLOGICAL: Awake and alert. No obvious cranial nerve deficits. Motor grossly within normal limits. Normal speech. PSYCHIATRIC: Appropriate mood and affect; insight and judgment normal. Data Data Last Documented VS Vital Signs Date Time Temp Pulse Resp B/P (MAP) Pulse Ox O2 Delivery O2 Flow Rate FiO2 11/25/17 18:46 82 18 142/54 (83) 96 Room Air 11/25/17 17:20 98.1 Orders Orders Electrocardiogram (11/25/17 17:35) Basic Metabolic Panel (Bmp) (11/25/17 17:35) Complete Blood Count With Diff (11/25/17 17:35) Ecg Monitoring (11/25/17 17:35) Iv Access Insert/Monitor (11/25/17 17:35) Oximetry (11/25/17 17:35) Sodium Chloride 0.9% Flush (Ns Flush) (11/25/17 17:45) Sodium Chlor 0.9% 1000 Ml Inj (Ns 1000 M (11/25/17 17:35) Alcohol (Ethanol) (11/25/17 17:35) Labs Laboratory Tests Test 11/25/17 17:58 White Blood Count 6.8 TH/MM3 Red Blood Count 4.94 MIL/MM3 Hemoglobin 14.9 GM/DL Hematocrit 43.4 % Mean Corpuscular Volume 87.9 FL Mean Corpuscular Hemoglobin 30.3 PG Mean Corpuscular Hemoglobin Concent 34.4 % Red Cell Distribution Width 14.0 % Platelet Count 365 TH/MM3 Mean Platelet Volume 8.3 FL Neutrophils (%) (Auto) 68.7 % Lymphocytes (%) (Auto) 14.4 % Monocytes (%) (Auto) 10.4 % Eosinophils (%) (Auto) 5.5 % Basophils (%) (Auto) 1.0 % Neutrophils # (Auto) 4.6 TH/MM3 Lymphocytes # (Auto) 1.0 TH/MM3 Monocytes # (Auto) 0.7 TH/MM3 Eosinophils # (Auto) 0.4 TH/MM3 Basophils # (Auto) 0.1 TH/MM3 CBC Comment DIFF FINAL Differential Comment Blood Urea Nitrogen 21 MG/DL Creatinine 1.10 MG/DL Random Glucose 114 MG/DL Calcium Level 8.5 MG/DL Sodium Level 140 MEQ/L Potassium Level 3.8 MEQ/L Chloride Level 104 MEQ/L Carbon Dioxide Level 28.2 MEQ/L Anion Gap 8 MEQ/L Estimat Glomerular Filtration Rate 48 ML/MIN Ethyl Alcohol Level LESS THAN 3 MG/DL MDM Medical Decision Making Medical Screen Exam Complete: Yes Emergency Medical Condition: Yes Medical Record Reviewed: Yes Differential Diagnosis Cardiac arrhythmia, vasovagal episode, dehydration Narrative Course I have reviewed the patient's electronic medical record. IV placed and labs sent I reviewed her EKG which shows sinus rhythm and one area with sinus arrhythmia but no tachycardia Extended cardiac monitoring shows sinus rhythm without ectopy or tachycardia Gave her some IV fluid Neurologically normal, vital signs normal, symptoms improved Lab studies are reasonably normal On recheck she feels fine. She wants to go home. She has a recurrent episode she will be brought back by her daughter and we will hospitalize her but at this point she is stable for outpatient follow-up. Daughter will call her the [facility] office in the morning and they apparently have remote access to her loop recorder and will have that assessed Diagnosis Primary Impression: Syncope Qualified Codes: R55 - Syncope and collapse Additional Impression: Generalized weakness Additional Instructions: The patient was advised to follow up with their physician and return if they worsen. Med/Other Pt SpecificInfo: Other Disposition: 01 DISCHARGE HOME Condition: Stable Dat Patel MD Nov 25, 2017 17:41
[2017-11-25] MEDS ORDERED: SODIUM CHLORIDE 0.9% FLUSH 10 ML FLUSH IVF PRN (17:45)
[2017-11-25 17:50] VITALS: O2SAT 97
[2017-11-25 18:14] LABS: AUTOMATED NEUTROPHIL # 4.6 TH/MM3 (1.8-7.7); BASOPHIL # 0.1 TH/MM3 (0-0.2); EOSINOPHIL # 0.4 TH/MM3 (0-0.4); EOSINOPHIL % 5.5 % (0.0-4.0); HEMATOCRIT 43.4 % (35.0-46.0); HEMOGLOBIN 14.9 GM/DL (11.6-15.3); LYMPH % 14.4 % (9.0-44.0); MEAN CELL VOLUME 87.9 FL (80.0-100.0); MEAN CORPUSCULAR HEMOGLOBIN 30.3 PG (27.0-34.0); MEAN CORPUSCULAR HGB CONC 34.4 % (32.0-36.0); MEAN PLATELET VOLUME 8.3 FL (7.0-11.0); MONO % 10.4 % (0.0-8.0); MONOCYTE # 0.7 TH/MM3 (0-0.9); NEUT % 68.7 % (16.0-70.0); PLATELET COUNT 365 TH/MM3 (150-450); RED BLOOD COUNT 4.94 MIL/MM3 (4.00-5.30); WHITE BLOOD COUNT 6.8 TH/MM3 (4.0-11.0)
[2017-11-25 18:24] LABS: CHLORIDE 104 MEQ/L (98-107); SODIUM (NA) 140 MEQ/L (136-145)
[2017-11-25 18:29] LABS: CALCIUM 8.5 MG/DL (8.5-10.1)
[2017-11-25 18:30] LABS: BICARBONATE 28.2 MEQ/L (21.0-32.0); BLOOD UREA NITROGEN 21 MG/DL (7-18); GLUCOSE,RANDOM 114 MG/DL (74-106)
[2017-11-25 18:33] LABS: GLOMERULAR FILTRATION RATE 48 ML/MIN (>89)
[2017-11-25 18:46] VITALS: BP 142/54; PULSE 82; RESP 18; O2SAT 96
[2017-11-25] MEDS ORDERED: MELO15TA20 PO (18:48)
--- NOTE | 2017-11-26 14:48 | EKG ---
Date Performed: 11/25/2017 Time Performed: 17:56:15 PTAGE: 81 years EKG: Sinus rhythm WITH MARKED SINUS ARRHYTHMIA BORDERLINE ECG Since the PREVIOUS TRACING , no significant change noted PREVIOUS TRACIN03/07/2016 13.20 DOCTOR: Antwon Velazco Interpretating Date/Time 11/26/2017 14:46:58
== END 2017-11-25 19:44 | disposition home or self-care (01) ==
LOC: PHED 17:09
DX: R55 Syncope and collapse (principal); R53.1 Weakness; R42 Dizziness and giddiness; I49.9 Cardiac arrhythmia, unspecified; M19.90 Unspecified osteoarthritis, unspecified site; I48.91 Unspecified atrial fibrillation; F41.9 Anxiety disorder, unspecified; F32.9 Major depressive disorder, single episode, unspecified; I10 Essential (primary) hypertension; E78.00 Pure hypercholesterolemia, unspecified; K21.9 Gastro-esophageal reflux disease without esophagitis; H40.9 Unspecified glaucoma; G62.9 Polyneuropathy, unspecified; E07.9 Disorder of thyroid, unspecified; Z79.899 Other long term (current) drug therapy; Z79.82 Long term (current) use of aspirin; Z88.6 Allergy status to analgesic agent; Z88.5 Allergy status to narcotic agent; Z88.0 Allergy status to penicillin; Z88.8 Allergy status to other drugs, medicaments and biological substances
CPT/HCPCS: 80048; 80307; 85025; 93005; 99284; J7030